=== PATIENT | female | born 1990 | race Caucasian/White ===

== ENCOUNTER 2018-03-18 18:24 | Emergency (ER) | payer BC, OTHER ==
[~2018-03-18] VITALS: Ht 165.1 cm; Wt 72.6 kg
--- NOTE | 2018-03-18 18:28 | NUR ---
PATIENT TO ED DT ALTERED MENTAL STATUS POSSIBLE ETOH. PATIENT IS AWAKE AND ALERT. APPEARS IN NO ACUTE. RESPIRATION EVEN AND UNLABORED. SKIN IS WARM TO TOUCH AND AND NON DIAPHORETIC. PT IS [email or web address]
[2018-03-18 18:30] VITALS: BP 141/85
--- NOTE | 2018-03-18 18:57 | NUR ---
PATIENT ELOPED FR THE FACILITY. JAIR FARRAR MADE AWARE.
--- NOTE | 2018-03-18 19:20 | NUR ---
CALLED [employer] NON EMERGENCY DISPATCH, THEY ARE GOING TO PROVIDE A WELFARE CHECK.
== END 2018-03-18 19:46 | disposition home or self-care (01) ==
LOC: ER 18:28
DX: F10.129 Alcohol abuse with intoxication, unspecified (principal)
CPT/HCPCS: A4606; Z7610